=== PATIENT | female | born 1990 | race African-American/Black ===

== ENCOUNTER 2019-03-31 20:02 | Emergency (ER) | payer BC, OTHER ==
[~2019-03-31] VITALS: Ht 167.6 cm; Wt 108.9 kg
[~2019-03-31 20:02] MED LIST: ACCUNEB SO1.25 MG/1; ALBUTEROL INH; MECLIZINE 25 MG25 M1 PO; NORCO 5-325 TA1 EACH PO; PHENERGAN 25 MG25 MG PO; PREDNISONE 5 MG5 M1 PO; PROAIR HFA8.5 GM IH
[2019-03-31] MEDS ORDERED: VITAFOL-OB+DHA1 EACH PO (22:43)
[2019-03-31 23:15] VITALS: BP 141/67
== END 2019-03-31 23:15 | disposition home or self-care (01) ==
LOC: ER 20:02
DX: O9A.219 Injury, poisoning and certain other consequences of external causes complicating pregnancy, unspecified trimester (principal); S62.521A Displaced fracture of distal phalanx of right thumb, initial encounter for closed fracture; S63.613A Unspecified sprain of left middle finger, initial encounter; J45.909 Unspecified asthma, uncomplicated; Z3A.00 Weeks of gestation of pregnancy not specified; Z87.891 Personal history of nicotine dependence; Z88.0 Allergy status to penicillin; Y08.89XA Assault by other specified means, initial encounter; Y93.89 Activity, other specified; Y92.89 Other specified places as the place of occurrence of the external cause; Y99.8 Other external cause status